=== PATIENT | male | born 2000 | race Hispanic/Latino ===

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

== ENCOUNTER 2020-09-06 06:04 | Emergency (ER) | payer OTHER ==
[~2020-09-06] VITALS: Ht 170.2 cm; Wt 81.4 kg
[2020-09-06 06:05] VITALS: BP 131/87
[2020-09-06] MEDS ORDERED: KEFL500C17 PO (06:49)
== END 2020-09-06 07:05 | disposition home or self-care (01) ==
LOC: M ED 06:04
DX: L03.211 Cellulitis of face (principal)